=== PATIENT | male | born 1935 | race Caucasian/White ===

== ENCOUNTER 2024-09-07 10:15 | Emergency (ER) | payer MEDICARE, OTHER ==
[~2024-09-07] VITALS: Ht 185.4 cm; Wt 83.0 kg
[~2024-09-07 10:15] MED LIST: APIX2.5T PO; BICA50TA7 PO; CITA10TA93 PO; DESM0.2T29 PO; METO-395 PO; PRAV40TA3 PO; TAMS-55 PO
--- NOTE | 2024-09-07 10:47 | Physician Documentation ---
History of Present Illness ~ General Chief Complaint: See Chief Complaint Stated Complaint: PACEMAKER ISSUES Time Seen by MD: 10:30 Source: patient, RN/MD Mode of Arrival: EMS History of Present Illness Initial Comments 88 yom p/w beeping pacemaker. Change out earlier this month. No symptoms Medication Reconciliation Allergies: Coded Allergies: No Known Drug Allergies (Verified Allergy, Unknown, 09/07/24) Scheduled Amlodipine Besylate/Benazepril 5/40 MG* (Amlodipine-Benazepril 5/40 MG*), 1 CAP PO DAILY, (Reported) Apixaban (Eliquis), 1 TAB PO BID, (Reported) Bicalutamide (Bicalutamide), 1 TAB PO DAILY, (Reported) Citalopram Hydrobromide (Citalopram HBr), 1 TAB PO DAILY, (Reported) Desmopressin Acetate (Desmopressin Acetate), 2 TAB PO HS, (Reported) Metoprolol Succinate (Metoprolol Succinate), 1 TAB PO DAILY, (Reported) Pravastatin Sodium (Pravastatin Sodium), 1 TAB PO DAILY, (Reported) Tamsulosin Hcl* (Flomax*), 1 CAP PO DAILY, (Reported) Scheduled PRN Hydrocodone Bit/Acetaminophen 5/325 MG ([place] 5/325 MG), 1-2 TAB PO Q4HPRN PRN for pain, (Reported) Review of Systems All Other Systems at this time: Reviewed and Negative Physical Exam Physical Exam Vital Signs: Temperature: 97.5, Source: Temporal, Heart Rate: 72, Respiratory Rate: 16, BP: 119/45, Pulse Oximetry: 94, Weight: 83.000 Oxygen Flow Rate: 2.0 General Appearance: alert, WD/WN, no apparent distress Head: normal inspection Face: normal inspection Respiratory: lungs clear Chest: chest non-tender Cardiovascular: normal peripheral pulses Gastrointestinal: normal palpation Neurologic: oriented to person, oriented to place Motor / Sensory: no motor deficit Progress Results/Orders Reviewed/noted all lab results: Yes Results/Orders Orders - DONAL NAJERA MD Chest,Single View (09/07/24 ) Completed Orders - DONAL NAJERA MD Chest,Single View (09/07/24 ) Vital Signs 09/07/24 10:21 Temp 97.5 Pulse 72 Resp 16 B/P (MAP) 119/45 Pulse Ox 94 O2 Flow Rate 2.0 EKG/XRAY/CT/US/VASC/MRI Chest X-Ray : Additional Comments cxr showing intact leads Medical Decision Making Additional info obtained from: old records Findings echo 08/12 EF 50% d/c summary 09/11 Departure Disposition: [facility] Impression: Primary Impression: Pacemaker reprogramming/check Additional Instructions: Call Dr. Moore, your pacemaker is beeping because you do not have a home monitor setup. There is nothing wrong with your pacemaker Referrals: NO PRIMARY CARE PROVIDER (PCP) Signature Scribe Signature: na Attestation: DONAL Reyna MD Sep 07, 2024 10:47
[2024-09-07] MEDS ORDERED: AMLO-140 PO (10:50)
[2024-09-07] MEDS ORDERED: HYDR-3965 PO (10:50)
--- NOTE | 2024-09-07 11:04 | RADIOLOGY REPORT ---
EXAM: DI CHEST,SINGLE VIEW HISTORY: pacemaker issue COMPARISON: DI CHEST,SINGLE VIEW on DOS: 08/30/24 TECHNIQUE: Portable upright AP view of the chest was performed. FINDINGS: There are interstitial opacities throughout both lungs, slightly more dense on the left, increased ve rsus prior chest x-ray. No pneumothorax. The heart is enlarged. There are postoperative changes of m edian sternotomy and left chest AICD. There are degenerative changes of the bilateral shoulders. IMPRESSION: Cardiomegaly and postoperative changes of the heart with increased bilateral interstitial infiltrates suggestive of worsening CHF.
[2024-09-07 14:38] VITALS: BP 129/74; PULSE 70; RESP 16; TEMP 98; O2SAT 98
== END 2024-09-07 14:42 ==
LOC: ER 10:16
DX: T82.897A Other specified complication of cardiac prosthetic devices, implants and grafts, initial encounter (principal); Z79.899 Other long term (current) drug therapy
CPT/HCPCS: 71045; 99285